=== PATIENT | female | born 1960 | race Caucasian/White ===

== ENCOUNTER → 2017-03-28 | Outpatient (CLI) | payer OTHER | LOC: WC.BC 10:49 | DX: Z12.31 Encounter for screening mammogram for malignant neoplasm of breast (principal); N64.59 Other signs and symptoms in breast; N64.89 Other specified disorders of breast | CPT/HCPCS: 77063; G0202 ==

== ENCOUNTER → 2017-03-31 | Outpatient (CLI) | payer OTHER | LOC: WC.BC 09:45 | PROVIDERS: ATTEND Family Medicine | DX: D48.62 Neoplasm of uncertain behavior of left breast (principal); N64.59 Other signs and symptoms in breast; R92.2 Inconclusive mammogram | CPT/HCPCS: 76642; G0206 ==

== ENCOUNTER → 2017-04-07 | Outpatient (CLI) | payer OTHER ==
[~2017-04-07] MED LIST: LIDOCAINE 1% 30ml (STERI-PAK) ONE
== END ==
LOC: IMA 10:31
PROVIDERS: ATTEND Family Medicine
DX: C50.412 Malignant neoplasm of upper-outer quadrant of left female breast (principal); Z17.0 Estrogen receptor positive status [ER+]
CPT/HCPCS: 19083; G0206